=== PATIENT | female | born 1945 | race Caucasian/White ===

== ENCOUNTER 2024-07-08 08:33 | Outpatient (AMB) | payer OTHER, SELFPAY ==
--- NOTE | 2024-07-08 08:34 | AM.OFFWIN_ITS ---
Intake Vital Signs 07/08/24 08:35 Height 5 ft 5 in Weight 122 lb BMI 20.3 BP 128/84 Blood Pressure Location Lt brachial Position Sitting Pulse 77 Pulse Source Pulse Oximeter Temp 98.6 F Temp Source Oral Pulse Oximetry (%) 97 Oxygen Delivery Method Room Air Intake Visit Reasons: [employer] Cough Intake Note: pt c/o cough. Started with a cold 2 weeks ago. Lingering cough, otherwise feel okay Patient Tobacco Use Status: Former Tobacco user Allergies No Known Allergies Allergy (Verified 07/08/24 08:34) Do you need a note to return to daycare/school/sports/work: No HPI HPI Comments History of Present Illness Details This is a 78-year-old female who presented to the walk-in clinic complaining of a persistent cough x2 weeks. Patient states her symptoms started with a sore throat and then developed into some viral URI symptoms. Her viral URI symptoms have resolved; however, her cough has persisted. She states she is coughing up sputum, which is white. She denies any fever/chills. She denies any chest pain/shortness of breath. She denies any abdominal pain or nausea/vom iting/diarrhea. [facility] Social History Patient Tobacco Use Status: Former Tobacco user Review of Systems Const All systems reviewed & are unremarkable except as noted in HPI and below Reports no additional complaints Eyes Reports no additional complaints ENT Reports no additional complaints Card Reports no additional complaints Resp Reports no additional complaints GI Reports no additional complaints Reports no additional complaints Musc Reports no additional complaints Skin/Breast Reports system reviewed and no additional complaints, except as documented Neuro Reports no additional complaints Psych Reports no additional complaints Endo Reports no additional complaints Anjel/Lymph Reports no additional complaints Aller/Immun Reports no additional complaints Physical Exam Vital Signs: Last Vital Signs Temp 98.6 F 07/08/24 08:35 Pulse 77 07/08/24 08:35 BP 128/84 07/08/24 08:35 Pulse Ox 97 07/08/24 08:35 Oxygen Delivery Method Room Air 07/08/24 08:35 BMI result Body Mass Index 20.3 Const Other: Vital signs reviewed. Constitutional: Non-toxic appearing. No acute distress. Well-developed and well-nourished. HEENT: Normocephalic and atraumatic. Tympanic membranes without erythema, edema, or bulging bilaterally. External auditory canals without erythema or edema bilaterally. Moist mucous membranes. No pharyngeal erythema or exudates. Skin: Warm and dry. No rashes or lesions noted. Neck: Full and painless range of motion. No cervical lymphadenopathy. Cardio: Regular rate and rhythm. No murmurs, gallops, or rubs. No lower extremity edema. No JVD. Pulmonary: No respiratory distress. No accessory muscle usage. Clear to auscultation bilaterally without wheezing, crackles, or rhonchi. Gastrointestinal: Soft, non-tender, and non-distended in all 4 quadrants. Musculoskeletal: Normal range of motion in joints throughout the body. No deformity or other signs of injury. Neuro: Alert and oriented x4. Cranial nerves 2-12 grossly intact. No focal deficits appreciated. Psych: Normal mood and affect. Assessment & Plan Assessment & Plan (1) Post-viral cough syndrome: Code(s): R05.8 - Other specified cough Plan: This is a 78-year-old to the walk-in clinic complaining of a persistent pr oductive cough following viral URI symptoms 2 weeks ago. On physical examination, lungs are clear to auscultation bilaterally her vital signs are stable. Patient very likely has a postviral cough versus post viral bronchitis. Patient was sent home on p.o. azithromycin 500 mg today followed by 250 mg daily x4 days as well as p.o. benzonatate 100 mg 3 times daily as needed for cough. Patient was advised to follow-up here or proceed to the emergency room if she were to develop worsening sputum production/purulence, fever/chills, or shortness of breath. Patient verbalized understanding and she is in agreement with the plan. Medications: New benzonatate 100 mg PO TID PRN 20 caps 0RF cough azithromycin For 250 mg dose pack: take 500 mg today (day 1), then 250 mg for 4 days (days 2-5) PO 6 tabs 0RF Coding Level of Care Code New Pt Level 3 (73703) Diagnoses Post-viral cough syndrome R05.8
[2024-07-08 08:35] VITALS: BP 128/84; PULSE 77; TEMP 37; O2SAT 97; BMI 20.3
== END 2024-07-08 09:57 | disposition home or self-care (01) ==
PROVIDERS: PCP Internal Medicine; Visit Provider Physician Assistant Medical
DX: R05.8 Other specified cough (principal)
CPT/HCPCS: 99203

== ENCOUNTER 2024-07-23 09:07 | Outpatient (AMB) | payer OTHER, SELFPAY ==
[2024-07-23 09:09] VITALS: BP 130/80; PULSE 76; O2SAT 97; BMI 20.1
--- NOTE | 2024-07-23 09:09 | AM.OFFWIN_ITS ---
Intake Vital Signs 07/23/24 09:09 Height 5 ft 5 in Weight 121 lb BMI 20.1 BP 130/80 Blood Pressure Location Rt brachial Position Sitting Pulse 76 Pulse Source Pulse Oximeter Pulse Oximetry (%) 97 Oxygen Delivery Method Room Air Intake Visit Reasons: EP constipation 7 days Intake Note: pt is here for constipation for 7 days Patient Tobacco Use Status: Former Tobacco user Allergies No Known Allergies Allergy (Verified 07/23/24 09:09) Do you need a note to return to daycare/school/sports/work: No HPI HPI Comments History of Present Illness Details 72-year-old female who presents for conc tawana of constipation. Patient states that she has been constipated for the past 7 days he has been taking Colace without much relief. She endorses some abdominal fullness and cramping. One episode of nausea after taking medication yesterday. This has happened 1 other time before and she was given GoLYTELY in the emergency department. Denies any history of abdominal surgeries. PFSH Social History Patient Tobacco Use Status: Former Tobacco user Physical Exam Vital Signs: Last Vital Signs Pulse 76 07/23/24 09:09 BP 130/80 07/23/24 09:09 Pulse Ox 97 07/23/24 09:09 Oxygen Delivery Method Room Air 07/23/24 09:09 BMI result Body Mass Index 20.1 Const General: cooperative, healthy appearing, no acute distress and alert Orientation/consciousness: patient oriented x3 Limitations: no limitations HEENT Head: Yes normal to inspection Ears: hearing grossly normal bilaterally General nose exam: Normal external nose present Resp Effort & Inspection: normal respiratory effort and able to speak in complete sentences Cardio Rate: regular rate GI Other: Soft mildly distended nontender to palpation Skin General skin exam: no rashes or lesions noted Neuro General: patient oriented x3 Extrem General: Yes normal to inspection Assessment & Plan Assessment & Plan (1) Constipation: Code(s): K59.00 - Constipation, unspecified Qualifiers: Constipation type: slow transit constipation Qualified Code(s): K59.01 - Slow transit constipation Plan: Relatively benign abdominal exam with low risk factors are low suspicion for acute bowel obstruction. Suspect constipation. Recommend starting 2 tabs of senna at night plus daily MiraLax until a bowel movement is produced. Discussed warning signs of bowel obstruction to include worsening abdominal pain nausea and vomiting. Also discussed patient could purchase [id number] enema patient will try senna and MiraLax 1st. Plan -Senokot 2 tabs q.h.s. -17 g of MiraLax q.d. until bowel movements per day -consider home purchased enema -worsening symptoms presents to the emergency department Coding Level of Care Code Est Pt Level 3 (91385) Diagnoses Slow transit constipation K59.01 Constipation type: slow transit constipation
== END 2024-07-23 10:00 | disposition home or self-care (01) ==
PROVIDERS: PCP Internal Medicine; Visit Provider Physician Assistant
DX: K59.01 Slow transit constipation (principal)
CPT/HCPCS: 99051; 99213